=== PATIENT | male | born 1955 | race Caucasian/White ===

== ENCOUNTER 2020-02-26 15:32 | Inpatient (IN) | payer OTHER ==
--- NOTE | 2020-02-26 15:50 | PDOC ---
Rapid Medical Evaluation Time Seen by Provider: 02/26/20 15:49 Medical Evaluation: 02/26/20 15:49 CC: sent from [email or web address] for c/o cp, needs cardiac w/u , takes only daily baby asa exam: vss, in No acute distress Plan: cardiac w/u bnp Discharge Disposition - Diagnosis Chest pain - Referrals - Patient Instructions - Post Discharge Activity
[2020-02-26 15:53] VITALS: BMI 24.2
--- NOTE | 2020-02-26 16:02 | PDOC ---
History of Present Illness - General Chief Complaint: Chest Pain Stated Complaint: SENT BY DOC Time Seen by Provider: 02/26/20 15:49 History Source: Patient Exam Limitations: No Limitations - History of Present Illness Initial Comments: 02/26/20 16:01 64yM w PMHx HLD presenting w CC: sent from [facility] for c/o cp, needs cardiac w/u , takes only daily baby asa exam: vss, in No acute distress Plan: cardiac w/u bnp Past History - Medical History Allergies/Adverse Reactions: Allergies Allergy/AdvReac Type Severity Reaction Status Date / Time No Known Allergies Allergy Verified 02/26/20 15:52 COPD: No - Psycho-Social/Smoking History Smoking History: Never smoked *Physical Exam - Vital Signs Last Vital Signs Temp Pulse Resp BP Pulse Ox 98.3 F 78 18 195/87 H 99 02/26/20 15:45 02/26/20 15:45 02/26/20 15:45 02/26/20 15:45 02/26/20 15:45 Discharge - Discharge Information Clinical Impression/Diagnosis: Chest pain - Follow up/Referral - Patient Discharge Instructions - Post Discharge Activity
--- NOTE | 2020-02-26 16:04 | PDOC ---
Attending Attestation - ED Attending Attestation I have performed the following: I have examined & evaluated the patient, The case was reviewed & discussed with the resident, I agree w/resident's findings & plan, Exceptions are as noted - HPI HPI: 02/26/20 16:02 64YOM with h/o HLD, on daily ASA 81mg, and likely chronic HTN, who was instructed to come in by Dr. Michel Mayen for chest pain since Tuesday at rest, and high blood pressure measured in PCP office today. Patient notes he has been having exertional chest pain chronically, which has always resolved with rest up until now. Dr. Mayen requests Mitchell Reyes for cardiology. - Physicial Exam PE: 02/26/20 16:14 GENERAL: well-appearing, A/Ox4, no distress, answers questions appropriately HEENT: PERRLA, EOMI, moist mucous membranes NECK/BACK: no midline ttp, no spinal step-off or deformity, no hematoma, full ROM, neck supple CARDIOVASCULAR: regular rate/rhythm, no MGR, strong peripheral pulses which are 2+ radial bilaterally, capillary refill <2 seconds, extremities wwp, no edema LUNGS/RESPIRATORY: no respiratory distress, CTAB GI/ABDOMEN: symmetric [id number], normoactive BS, soft, no ttp, no midline pulsatile masses : no CVA tenderness MSK/EXTREMITIES: no muscle atrophy, no acute deformity SKIN: warm and dry, no pallor, no jaundice, no rash, no pathologic-appearing bruising, no skin breakdown, no cuts, no lesions NEUROLOGICAL: GCS 15, CN II-XII grossly intact, 5/5 strength proximally and distally, no facial droop - Medical Decision Making 02/26/20 16:05 64YOM with h/o HLD who p/w chest pain and high blood pressure for the past 4 day s. Initial Vital Signs Temp Pulse Resp BP Pulse Ox 98.3 F 78 18 195/87 H 99 02/26/20 15:45 02/26/20 15:45 02/26/20 15:45 02/26/20 15:45 02/26/20 15:45 There is concern for ACS, hypertensive emergency, pericarditis, PE, PNA/bronchitis, pleurisy, pleuritis, aortic dissection/aneurysm, PTX, esophageal pathology, gastritis/PUD, biliary pathology, other abdominal pathology, or musculoskeletal/costochondritis. CXR: HEART score indicates Pt is higher risk and should be managed in hospital with cardiology consult. Patient admitted to Telemetry as per resident note. Heart Score/ECG Review - History History: Moderately suspicious - Electrocardiogram EKG: Normal - Age Age: >/= 65 - Risk Factors Risk Factors Heart Score: Yes Hx Hypercholesterolemia #1 02/26/20 15:40 Sinus rhythm, rate 76, normal axis and intervals, no ischemic acute ST-T changes Discharge - Discharge Information Problems reviewed: Yes Clinical Impression/Diagnosis: Chest pain Condition: Guarded - Admission Yes - Follow up/Referral Referrals: Srinivas Mayen MD [Primary Care Provider] - - Patient Discharge Instructions - Post Discharge Activity
--- NOTE | 2020-02-26 16:11 | PDOC ---
History of Present Illness - General Chief Complaint: Chest Pain Stated Complaint: SENT BY DOC Time Seen by Provider: 02/26/20 15:49 - History of Present Illness Initial Comments: HPI Pt is a 64yo M with PMH HLD who presents with chest pain. Pt states that he has had episodes of pressure-like chest pain, 6/10, nonradiating, nonpleuritic, nonpositional; lasting 15 minutes, resolves with rest. Reports that these episodes have occurred for years, always associated with exertion. 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 This past Tuesday, he reports an episode that occurred at rest, was sitting at home watching TV, and reported 1 episode of chest pain. Denies associated n/v, diaphoresis, SOB. Has not taken medications for pain relief. Has not had another episode of chest pain since Tuesday. Reports b/l worsening knee pain that is only noticeable with movement. Denies calf swelling, hx of blood clots, recent immobilization. Denies family history of NC at early age (mother had NC in 70s). PCP: Tiarra PMH: HLD PSH: appendectomy, tonsillectomy Meds: ASA 81mg Allergies: NKDA Social: denies tobacco use, occasional etoh use, denies illicit drug use Review of Systems CONSTITUTIONAL:denies fever, chills, diaphoresis, generalized weakness, malaise, loss of appetite HEENT:denies rhinorrhea, nasal congestion, sore throat CARDIOVASCULAR:reports chest pain; denies syncope, palpitations, irregular heart rate, lightheadedness, peripheral edema RESPIRATORY:denies cough, shortness of breath, wheezing, hemoptysis GASTROINTESTINAL: denies abdominal pain, nausea, vomiting, diarrhea, constipation, melena, hematochezia GENITOURINARY:reports increased urinary frequency; denies dysuria, urgency, hematuria, flank pain MUSCULOSKELETAL:denies myalgia, arthralgia HEMATOLOGIC/IMMUNOLOGIC:denies easy bleeding, easy bruising ENDOCRINE: denies unexplained weight gain, unexplained weight loss NEUROLOGIC:denies headache, loss of consciousness, focal weakness or paresthesias, dizziness, mental status changes, bladder or bowel incontinence SKIN:denies rash, itching, pallor Physical Exam General: awake, alert, fully oriented, in no acute distress, well developed, well nourished Head: normocephalic, atraumatic Eyes: PERRL, anicteric sclera, conjunctiva clear ENT: Auricles normal inspection, hearing grossly normal, oropharynx clear without exudates, moist mucous membranes Neck: supple, normal ROM Lung: equal breath sounds b/l, CTA b/l, no crackles, wheezes; no distress, speaks full sentences Heart: RRR, normal S1, S2, no murmurs appreciated Abdomen: soft, non tender, normoactive bowel sounds, no guarding, rebound, masses Extremities: no edema, no erythema or tenderness, DP/PT pulses 2+ and symmetric, no clubbing, cyanosis Neuro: CN2-12 grossly intact, moves all extremities, normal speech, normal gait, sensation intact Skin: warm, dry, no rashes or lesions noted; 2 healed scars across sternum MDM Pt is a 64yo M with PMH HLD who presents with chest pain. DDx including but not limited to: ACS, musculoskeletal pain, dissection Workup: labs, cxr, ekg Scores - HEART score - 4 EKG: normal sinus rhythm, HR 76bpm, AL 130ms, QRS 94ms, QTc 416ms CXR - no pneumothorax or pleural effusion. midline airway, appropriate vascular markings, no blunting of costophrenic angle, no cardiomegaly, as read by ED staff Labs: no leukocytosis, no anemia, electrolytes WNL, trop WNL, BNP WNL Re-assessment: Patient denies pain, resting comfortably in bed. Admission discussed with patient who agreed with plan Disposition: Tele obs Past History - Medical History Allergies/Adverse Reactions: Allergies Allergy/AdvReac Type Severity Reaction Status Date / Time No Known Allergies Allergy Verified 02/26/20 15:52 Home Medications: Ambulatory Orders Aspirin [ASA -] 81 mg PO DAILY 02/26/20 Mv-Mins/Folic Acid/Guarana/Caf [One Daily Tablet] 1 each PO DAILY 02/26/20 Atorvastatin Ca [Lipitor] 10 mg PO HS #30 tablet 02/27/20 Metoprolol Tartrate [Lopressor -] 25 mg PO BID #60 tablet 02/27/20 COPD: No - Psycho-Social/Smoking History Smoking History: Never smoked *Physical Exam - Vital Signs Last Vital Signs Temp Pulse Resp BP Pulse Ox 98.3 F 78 18 195/87 H 99 02/26/20 15:45 02/26/20 15:45 02/26/20 15:45 02/26/20 15:45 02/26/20 15:45 Heart Score/ECG Review - History History: Moderately suspicious - Electrocardiogram EKG: Normal - Age Age: >/= 65 - Risk Factors Risk Factors Heart Score: Yes Hx Hypercholesterolemia Based on the list above the patient has:: 1-2 risk factors - Troponin Troponin: </= normal limit - Score Heart Score - Total: 4 ED Treatment Course - LABORATORY CBC & Chemistry Diagram: 02/26/20 15:56 02/27/20 08:25 Discharge - Discharge Information Problems reviewed: Yes Clinical Impression/Diagnosis: Chest pain Qualifiers: Chest pain type: other chest pain Qualified Code(s): R07.89 - Other chest pain Condition: Stable Disposition: HOME - Admission Yes - Follow up/Referral - Patient Discharge Instructions - Post Discharge Activity
--- NOTE | 2020-02-26 16:16 | EKG ---
Test Reason : Blood Pressure : / mmHG Vent. Rate : 076 BPM Atrial Rate : 076 BPM P-R Int : 130 ms QRS Dur : 094 ms QT Int : 370 ms P-R-T Axes : 081 067 065 degrees QTc Int : 416 ms NORMAL SINUS RHYTHM NORMAL ECG NO PREVIOUS ECGS AVAILABLE Confirmed by MD JAE, DAVIAN ([id number]) on 02/26/2020 4:16:01 PM Referred By: Confirmed By:DAVIAN ROWE MD
[2020-02-26 16:29] LABS: BASO % 0.4 % (0-2.0); EOS % 2.1 % (0-4.5); HEMATOCRIT 44.1 % (35.4-49); HEMOGLOBIN 14.7 GM/dL (11.7-16.9); LYMPH % 25.8 % (8-40); MCHC 33.4 g/dl (32.0-35.9); MEAN CELL VOLUME 89.8 fl (80-96); MEAN PLT VOLUME 8.1 fl (7.5-11.1); MONO % 6.9 % (3.8-10.2); NEUT % 64.8 % (42.8-82.8); PLATELET COUNT 283 K/MM3 (134-434); RBC 4.91 M/mm3 (4.00-5.60); RDW 13.4 % (11.9-15.9); WHITE BLOOD COUNT 6.8 K/mm3 (4.0-10.0)
[2020-02-26 16:58] LABS: ALK PHOS 71 U/L (45-117); ANION GAP 4 MMOL/L (8-16); BILIRUBIN,TOTAL 0.4 mg/dL (0.2-1); BLOOD UREA NITROGEN 17.4 mg/dL (7-18); CALCIUM 9.1 mg/dL (8.5-10.1); CHLORIDE 106 mmol/L (98-107); CO2 29 mmol/L (21-32); CREATININE 0.8 mg/dL (0.55-1.3); GLUCOSE,RANDOM 86 mg/dL (74-106); MAGNESIUM 2.3 mg/dL (1.8-2.4); N-TERMINAL BNP 94.7 pg/ml (5-125); POTASSIUM 4.3 mmol/L (3.5-5.1); SGOT/AST 15 U/L (15-37); SGPT/ALT 23 U/L (13-61); SODIUM 140 mmol/L (136-145); TOT PROT 8.4 g/dl (6.4-8.2)
[2020-02-26 17:37] LABS: INR 1.02 (0.83-1.09)
[2020-02-26 17:40] LABS: ACTIVATED PTT 31.9 SECONDS (25.2-36.5)
--- NOTE | 2020-02-26 17:56 | HP ---
Admitting History and Physical - Primary Care Physician PCP: Srinivas Mayen - Admission Chief Complaint: Chest pain History of Present Illness: Pt states that developed chest pressure while at work on past Tuesday, lasting for few seconds at a time, on and off for 2 hours. Pt experienced the same next day, Tuesday, at rest while at home. Pt started to take ASA (81 mg) at his daughter recommendation (an RN). Pt with PMHx/o HLD, elevated fasting glucose, didn't see a doctor in few years, on no medications. History Source: Patient - Past Medical History Cardiovascular: Yes: Hyperlipdemia Endocrine: Yes: Other (elevated fasting glucose) - Smoking History Smoking history: Never smoked Home Medications - Allergies Allergies/Adverse Reactions: Allergies Allergy/AdvReac Type Severity Reaction Status Date / Time No Known Allergies Allergy Verified 02/26/20 15:52 - Home Medications Home Medications: Ambulatory Orders Aspirin [ASA -] 81 mg PO DAILY 02/26/20 Mv-Mins/Folic Acid/Guarana/Caf [One Daily Tablet] 1 each PO DAILY 02/26/20 Family Medical History Family Hx Cardiac Disorders: Mother Family Hx Coronary Artery Disease: Mother Review of Systems - Review of Systems Constitutional: denies: Chills, Fever Eyes: denies: Blurred Vision, Recent Change in Vision HENT: denies: Difficult Swallowing, Throat Pain Neck: denies: Decreased ROM, Pain on Movement Cardiovascular: denies: Edema, Palpitations, Shortness of Breath Respiratory: denies: Cough, SOB, Wheezing Gastrointestinal: denies: Abdominal Pain, Nausea, Rectal Bleeding Genitourinary: denies: Burning, Hematuria Musculoskeletal: reports: Joint Pain (both knees, right more that left). denies: Back Pain Integumentary: reports: Rash (on the face, devopled it this morning). denies: Blister, Bruising Neurological: denies: Change in LOC, Confusion, Numbness, Unsteady Gait Endocrine: denies: Excessive Sweating, Intolerance to Cold Hematology/Lymphatic: denies: Easily Bruised, Excessive Bleeding Psychiatric: denies: Anxiety, Depression Physical Examination Vital Signs: Vital Signs Temperature 98.3 F 02/26/20 15:45 Pulse Rate 71 02/26/20 16:56 Respiratory Rate 18 02/26/20 15:45 Blood Pressure 170/90 02/26/20 16:56 O2 Sat by Pulse Oximetry (%) 99 02/26/20 15:45 Constitutional: Yes: No Distress, Calm Eyes: Yes: Conjunctiva Clear, EOM Intact, PERRL HENT: Yes: Normocephalic. No: Pharyngeal Erythema, Rhinnorhea Neck: Yes: Trachea Midline, Lymphadenopathy Cardiovascular: Yes: Regular Rate and Rhythm, S1, S2 Respiratory: Yes: Regular, CTA Bilaterally. No: Rales, Wheezes Gastrointestinal: Yes: Normal Bowel Sounds, Soft. No: Hepatomegaly, Splenomegaly ...Rectal Exam: Yes: Deferred Renal/: No: CVA Tenderness - Left, CVA Tenderness - Right Musculoskeletal: No: Back Pain, Joint Stiffness, Joint Swelling Edema: No Integumentary: Yes: Rash (forehead, nasal bridge). No: Bruising Neurological: Yes: Alert, Oriented, Cran Nerves II-XII Intact Psychiatric: Yes: Alert, Oriented Labs: CBC, BMP 02/26/20 15:56 02/26/20 15:56 Imaging - Results Chest X-ray: Report Reviewed Problem List - Problems (1) Chest pain Assessment/Plan: Pt with risk factors for CAD: male, age, HLD (no treatment). To observe and R/O TN Code(s): R07.9 - CHEST PAIN, UNSPECIFIED Qualifiers: Chest pain type: unspecified Qualified Code(s): R07.9 - Chest pain, unspecified (2) Hyperlipidemia Code(s): E78.5 - HYPERLIPIDEMIA, UNSPECIFIED (3) Elevated fasting glucose Code(s): R73.01 - IMPAIRED FASTING GLUCOSE Assessment/Plan Serial CE Cardio consult BB Statin AM labs
[2020-02-26] MEDS ORDERED: ATORVASTATIN CA 40 MG TABLET (FP) PO ONE (17:59)
[2020-02-26] MEDS ORDERED: ATORVASTATIN CA 40 MG TABLET (FP) ONE (18:50)
[2020-02-26] MEDS ORDERED: ASPIRIN 81 MG CHEWABLE TABLETS ONE (18:50)
[2020-02-26] MEDS ORDERED: METOPROLOL TARTRATE 25 MG TABLET (FP) ONE (18:50)
[2020-02-26] MEDS: METOPROLOL TARTRATE 25 MG TABLET (FP) PO SCH (18:55)
[2020-02-26] MEDS: ASPIRIN 81 MG CHEWABLE TABLETS PO SCH (18:55)
[2020-02-27 09:25] LABS: ALK PHOS 63 U/L (45-117); ANION GAP 4 MMOL/L (8-16); BILIRUBIN,TOTAL 0.5 mg/dL (0.2-1); BLOOD UREA NITROGEN 17.2 mg/dL (7-18); CALCIUM 9.2 mg/dL (8.5-10.1); CHLORIDE 105 mmol/L (98-107); CHOLESTEROL 197 mg/dL (50-200); CO2 30 mmol/L (21-32); CREATININE 0.9 mg/dL (0.55-1.3); GLUCOSE,RANDOM 102 mg/dL (74-106); HDL CHOLESTEROL 53 mg/dL (40-60); LDL CHOLESTEROL (ONLY SJRH) 132 mg/dL (5-100); POTASSIUM 4.4 mmol/L (3.5-5.1); SGOT/AST 12 U/L (15-37); SGPT/ALT 20 U/L (13-61); SODIUM 139 mmol/L (136-145); TOT PROT 7.3 g/dl (6.4-8.2); TRIGLYCERIDES 88 mg/dL (0-150)
--- NOTE | 2020-02-27 09:51 | CON.CARD ---
Consult Consult Specialty:: Cardiology Referred by:: Srinivas Mayen MD Reason for Consultation:: chest pain - History of Present Illness Chief Complaint: Chest pain History of Present Illness: 64 yo h/o chol, impaired glucose tolerance states that developed chest pressure while at work on past Tuesday, lasting for few seconds at a time, on and off for 2 hours. Pt experienced the same next day, Tuesday, at rest while at home, de nies associated symptoms of dyspnea, near or true syncope, palpitations, orthopnea, PND or LE edema. Pt started to take ASA (81 mg) at his daughter recommendation (an RN). Found to be hypertensive 195/ started on Lopressor with resolution of symptoms with BP control. - History Source History Provided By: Patient Limitations to Obtaining History: No Limitations - Past Medical History Cardio/Vascular: Yes: Hyperlipdemia Endocrine: Yes: Other (elevated fasting glucose) - Smoking History Smoking history: Never smoked Home Medications - Allergies Allergies/Adverse Reactions: Allergies Allergy/AdvReac Type Severity Reaction Status Date / Time No Known Allergies Allergy Verified 02/26/20 15:52 - Home Medications Home Medications: Ambulatory Orders Aspirin [ASA -] 81 mg PO DAILY 02/26/20 Mv-Mins/Folic Acid/Guarana/Caf [One Daily Tablet] 1 each PO DAILY 02/26/20 Family Medical History Family Hx Cardiac Disorders: Mother Family Hx Coronary Artery Disease: Mother Review of Systems - Review of Systems Cardiovascular: reports: Chest Pain Vital Signs: Vital Signs Temperature 98.3 F 02/27/20 05:30 Pulse Rate 56 L 02/27/20 07:30 Respiratory Rate 18 02/27/20 07:30 Blood Pressure 153/77 02/27/20 07:30 O2 Sat by Pulse Oximetry (%) 100 02/27/20 07:30 Constitutional: Yes: No Distress, Calm Neck: Yes: Supple Respiratory: Yes: Regular, CTA Bilaterally Gastrointestinal: Yes: Normal Bowel Sounds, Soft Cardiovascular: Yes: Regular Rate and Rhythm JVD: No Carotid Bruit: No Heart Sounds: Yes: S1, S2 Edema: No - Other Data Labs, Other Data: CBC, BMP 02/26/20 15:56 02/27/20 08:25 INR, PTT INR 1.02 (0.83-1.09) 02/26/20 16:30 Troponin, BNP 02/26/20 02/27/20 15:56 08:25 Troponin I < 0.02 < 0.02 B-Natriuretic Peptide 94.7 Troponin, BNP 02/26/20 02/27/20 15:56 08:25 Troponin I < 0.02 < 0.02 B-Natriuretic Peptide 94.7 NSR @ 76 w/o ST-T changes Ejection Fraction %: LVEF > or = 40 % Imaging - Results Chest X-ray: Report Reviewed (NAD) Problem List - Problems (1) Hypertensive urgency Code(s): I16.0 - HYPERTENSIVE URGENCY (2) Chest pain Code(s): R07.9 - CHEST PAIN, UNSPECIFIED Qualifiers: Chest pain type: other chest pain Qualified Code(s): R07.89 - Other chest pain; R07.8 - Other chest pain (3) Elevated fasting glucose Code(s): R73.01 - IMPAIRED FASTING GLUCOSE (4) Hyperlipidemia Code(s): E78.5 - HYPERLIPIDEMIA, UNSPECIFIED Qualifiers: Hyperlipidemia type: pure hypercholesterolemia Qualified Code(s): E78.00 - Pure hypercholesterolemia, unspecified; E78.0 - Pure hypercholesterolemia Assessment/Plan 1. Chest pain rule our OH 2. Hypertensive urgency 3. Hyperlipidemia 4. Impaired glucose tolerance P:1. Ruled out for OH, check Ha1c, serial ECG 2. Agree with ASA 81 qd, Lopressor 25 bid, Lipitor 10qd 3. May d/c home with f/u in office for stress testing and e chocardiogram 4. Thank you for consultative opportunity
[2020-02-27] MEDS ORDERED: METOPROLOL TARTRATE 25 MG TABLET (FP) ONE (10:38)
[2020-02-27] MEDS ORDERED: ASPIRIN 81 MG CHEWABLE TABLETS ONE (10:39)
[2020-02-27] MEDS: ASPIRIN 81 MG CHEWABLE TABLETS PO SCH (11:00)
[2020-02-27 11:07] VITALS: TEMP 97.9
[2020-02-27] MEDS: METOPROLOL TARTRATE 25 MG TABLET (FP) PO SCH ×2 (11:09→13:09)
--- NOTE | 2020-02-27 12:12 | DS ---
Physical Examination Vital Signs: Vital Signs Temperature 97.9 F 02/27/20 11:00 Pulse Rate 58 L 02/27/20 11:00 Respiratory Rate 18 02/27/20 11:00 Blood Pressure 139/67 02/27/20 11:00 O2 Sat by Pulse Oximetry (%) 100 02/27/20 11:00 Findings/Remarks: feels well no CP SOB MAHOGANY negative, cleared by cardio to go home f.u as outpt Constitutional: Yes: No Distress, Calm Eyes: Yes: Conjunctiva Clear HENT: Yes: Atraumatic Neck: Yes: Supple Cardiovascular: Yes: Regular Rate and Rhythm Respiratory: Yes: CTA Bilaterally Gastrointestinal: Yes: Soft. No: Tenderness Renal/: No: Hematuria Musculoskeletal: No: Joint Stiffness, Joint Swelling Extremities: No: Cold, Cool, Cyanosis Edema: No Integumentary: No: Rash, Venous Stasis Changes Neurological: Yes: Alert, Oriented ...Motor Strength: WNL Psychiatric: Yes: Alert, Oriented. No: Agitated, Suicidal Ideation Labs: CBC, BMP 02/26/20 15:56 02/27/20 08:25 Discharge Summary Problems reviewed: Yes Reason For Visit: HYPERLIPIDEMIA ACUTE CORONARY SYNDROME Current Active Problems Chest pain (Acute) Elevated fasting glucose (Acute) Hyperlipidemia (Acute) Hypertensive urgency (Acute) Procedures: Principal: admitted with CP/HTN Other Procedures: seen by cardiology, CE x3 negative; EKG - MAHOGANY Hospital Course: started on antiHTN meds and lipitor, ASA; improved; cleared by cardiology to DC home. f/u as advised. Condition: Stable - Instructions Diet, Activity, Other Instructions: f/u PCP and cardiology in 1-2 weeks; take meds as ordered; RTER if worse or recurrent c/o; health maintenance colonoscopy per GI Referrals: Srinivas Mayen MD [Primary Care Provider] - Evert Seaman MD [Staff Physician] - Disposition: HOME - Home Medications Comprehensive Discharge Medication List: Ambulatory Orders Aspirin [ASA -] 81 mg PO DAILY 02/26/20 Mv-Mins/Folic Acid/Guarana/Caf [One Daily Tablet] 1 each PO DAILY 02/26/20 lipitor and metoprolol see list
[2020-02-27 13:22] VITALS: BP 178/88; PULSE 80
--- NOTE | 2020-02-27 15:04 | EKG ---
Test Reason : Blood Pressure : / mmHG Vent. Rate : 061 BPM Atrial Rate : 061 BPM P-R Int : 128 ms QRS Dur : 086 ms QT Int : 386 ms P-R-T Axes : 082 063 057 degrees QTc Int : 388 ms NORMAL SINUS RHYTHM NORMAL ECG WHEN COMPARED WITH ECG OF 26-FEB-2020 15:40, NO SIGNIFICANT CHANGE WAS FOUND Confirmed by Donald Carmona MD ([id number]) on 02/27/2020 3:04:26 PM Referred By: Confirmed By:Donald Carmona MD
[2020-02-27] MEDS ORDERED: ATORVASTATIN CA 10 MG TABLET (FP) PO SCH (22:00)
== END 2020-02-27 13:40 | disposition home or self-care (01) | DRG 305 ==
LOC: JER 15:32 → JERBED 17:33
PROVIDERS: ADMIT Specialist; ATTEND Specialist
DX: I16.0 Hypertensive urgency (principal); R07.9 Chest pain, unspecified; E78.5 Hyperlipidemia, unspecified; R73.01 Impaired fasting glucose
CPT/HCPCS: 36415; 71046-TC-FY; 80053; 80061; 82550; 83721; 83735; 83880; 84439; 84443; 84484; 85025; 85610; 85730; 93005; 93010; 99285-25; G0378; U0003